=== PATIENT | female | born 1990 | race Asian ===

== ENCOUNTER → 2019-08-17 | Outpatient (CLI) | payer OTHER | LOC: M LABSMTC 09:51 → EDUNIT# 10:10 | PROVIDERS: ATTEND Anesthesiology | DX: Z01.818 Encounter for other preprocedural examination (principal); Z11.59 Encounter for screening for other viral diseases ==

== ENCOUNTER 2019-08-20 07:55 | Day surgery (SDC) | payer OTHER ==
[~2019-08-20] VITALS: Ht 144.8 cm; Wt 57.1 kg
[~2019-08-20 07:55] MED LIST: LR 1,000 ML IV ONE
[2019-08-20] MEDS ORDERED: IODINE STRONG SOLN 15 ML BTL As Ordered ONE (08:36)
[2019-08-20] MEDS ORDERED: BUPIVACAINE/EPIN 0.25% 30 ML VIAL As Ordered ONE ×2 (08:41→10:25)
[2019-08-20 08:47] LABS: HCG, SERUM QUALITATIVE NEGATIVE (NEGATIVE)
[2019-08-20] MEDS ORDERED: KETOROLAC 60 MG/2 ML VIAL As Ordered ONE (09:59)
[2019-08-20] MEDS ORDERED: propofoL 200 MG/20 ML VIAL As Ordered ONE (09:59)
[2019-08-20] MEDS ORDERED: ONDANSETRON 4MG/2ML VIAL As Ordered ONE (09:59)
[2019-08-20] MEDS ORDERED: METOCLOPRAMIDE INJ 10MG/2ML VIAL (J2765 PER 1) As Ordered ONE (09:59)
[2019-08-20] MEDS ORDERED: fentaNYL 100 MCG/2 ML INJECTION (J3010) As Ordered ONE (09:59)
[2019-08-20] MEDS ORDERED: MIDAZOLAM INJ 2MG/2ML VIAL (J2250 PER 1MG) As Ordered ONE (09:59)
[2019-08-20] MEDS ORDERED: LIDOCAINE 2% 100MG/5ML SDV (FOR ANES.) As Ordered ONE (09:59)
[2019-08-20] MEDS ORDERED: dexameTHASONE 4 MG/ML 1ML VIAL (J1100 PER 1MG) As Ordered ONE (09:59)
[2019-08-20] MEDS ORDERED: PERCOCET 5MG/325MG TAB As Ordered ONE (11:06)
[2019-08-20] MEDS ORDERED: ONDANSETRON 4MG/2ML VIAL IV PRN (11:15)
[2019-08-20] MEDS ORDERED: LR 1,000 ML IV SCH ×2 (11:15)
[2019-08-20] MEDS ORDERED: METOCLOPRAMIDE INJ 10MG/2ML VIAL (J2765 PER 1) IV PRN (11:15)
[2019-08-20] MEDS ORDERED: fentaNYL 100 MCG/2 ML INJECTION (J3010) IV PRN (11:15)
[2019-08-20] MEDS ORDERED: PERCOCET 5MG/325MG TAB PO PRN (11:15)
[2019-08-20 11:42] VITALS: BP 98/61
--- NOTE | 2019-08-20 17:09 | POST-OPPD ---
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 Risk of bleeding, infection, pain, need for repeat procedure, increased risk of delivery discussed with patient. She expresses understanding and desires to proceed. Patient was brought to OR with IV running. Patient placed under general anesthesia. Placed in lithotomy position. Vaginal and perineum prepped and draped. An insulated speculum placed in the vagina and cervix identified. Transformation zone visualized. Paracervical block performed using Marcain 0.25% with epi (18cc used). Parous appearing cervix. Lugos applied. Decreased uptake noted at 11oclock transformation zone. IUD string visualized and tucked intracervical using cutips. Loop caudery size [id number] used. Power set to 60/60. Left to right pass and tissue collected. Cervix cauderized thoroughly, hemostatic. One IUD string was cut during this process. One string appears intact. ECC performed and cytobrush used to collect specimen. Monsels placed. All instruments removed from vagina. Count correct x 2. KANWAL MORALES DO August 20, 2019 17:09
== END 2019-08-20 12:41 | disposition home or self-care (01) ==
LOC: M SDC 07:55
PROVIDERS: ATTEND Obstetrics & Gynecology
DX: D06.9 Carcinoma in situ of cervix, unspecified (principal); Z97.5 Presence of (intrauterine) contraceptive device; Z03.818 Encounter for observation for suspected exposure to other biological agents ruled out
CPT/HCPCS: 36415; 57522; 84703; 88307; J1100; J1885; J2250; J2405; J2765; J3010

== ENCOUNTER 2019-10-05 07:09 | Day surgery (SDC) | payer OTHER ==
[~2019-10-05] VITALS: Ht 144.8 cm; Wt 55.8 kg
[~2019-10-05 07:09] MED LIST changes: +LIDOCAINE 1% MDV 20ML VIAL SQ PRN; +LIDOCAINE 2% 100MG/5ML SDV (FOR ANES.) As Ordered ONE; +LR 1,000 ML IV SCH; +MIDAZOLAM INJ 2MG/2ML VIAL (J2250 PER 1MG) As Ordered ONE; +ONDANSETRON 4MG/2ML VIAL As Ordered ONE; +PERCOCET 5MG/325MG TAB PO PRN; +PHENYLephrine 500MCG 5ML (100MCG/ML) SYRINGE As Ordered ONE; +PROMETHAZINE INJ 25 MG/ML VIAL (J2550) IV PRN; +dexameTHASONE 4 MG/ML 1ML VIAL (J1100 PER 1MG) As Ordered ONE; +ePHEDrine SULFATE 25 MG/5 ML(5MG/ML) SYRINGE As Ordered ONE; +fentaNYL 100 MCG/2 ML INJECTION (J3010) As Ordered ONE; +propofoL 200 MG/20 ML VIAL As Ordered ONE
[2019-10-05 07:41] LABS: HEMATOCRIT 39.6 % (36.0-47.0); HEMOGLOBIN 12.9 g/dl (12.0-15.5); MEAN CORPUSCULAR HEMOGLOBIN 29.7 pg (27.0-33.0); MEAN CORPUSCULAR HGB CONC 32.6 g/dl (32.0-36.5); PLATELET COUNT, AUTOMATED 184 10^3/uL (150-450); RED BLOOD COUNT 4.35 10^6/uL (4.00-5.40); WHITE BLOOD COUNT 5.2 10^3/uL (4.0-10.0)
[2019-10-05] MEDS ORDERED: KETOROLAC 60MG 2ML VIAL As Ordered ONE ×2 (07:49→09:13)
[2019-10-05] MEDS ORDERED: BUPIVACAINE/EPIN 0.25% 30 ML VIAL As Ordered ONE (08:41)
[2019-10-05] MEDS ORDERED: IODINE STRONG SOLN 15 ML BTL As Ordered ONE (09:18)
[2019-10-05] MEDS ORDERED: LR 1,000 ML IV SCH (10:15)
[2019-10-05] MEDS ORDERED: fentaNYL 100 MCG/2 ML INJECTION (J3010) IV PRN (10:15)
[2019-10-05] MEDS ORDERED: ONDANSETRON 4MG/2ML VIAL IV PRN (10:15)
[2019-10-05] MEDS ORDERED: METOCLOPRAMIDE INJ 10MG/2ML VIAL (J2765 PER 1) IV PRN (10:15)
[2019-10-05 11:37] VITALS: BP 108/70
--- NOTE | 2019-10-05 11:42 | POST-OPPD ---
Postoperative Procedure Note Date Of Procedure: Oct 05, 2019 PREOPERATIVE DIAGNOSIS: HGSIL POSTOPERATIVE DIAGNOSIS: HGSIL FINDINGS: normal appearing ecto cervix. no acetowhite changes to ecto cervix. PROCEDURE: LEEP, ECC SURGEON: Kanwal Morales DO DISTRICT TRAFFIC CHIEF: NONE ANESTHESIA: GENERAL SPECIMENS: LEEP specimen with suture at 12oclock, ECC ESTIMATED BLOOD LOSS: < 5cc REPLACED: 800cc LR DRAINS: none COMPLICATIONS: none POSTOPERATIVE CONDITION: stable Detailed procedure note: Reason for procedure: 28 yo s/p LEEP in August 19 showing ASIM II on ECC with ASIM III on LEEP specimen. Patient desires repeat procedure Material to lab: LEEP specimen suture at 12 oclock, ECC Description of procedure: The risks, benefits, indications and alternatives of the procedure were reviewed with the patient and informed consent was obtained. Risk of bleeding, infection, pain, need for repeat procedure, increased risk of delivery discussed with patient. She expresses understanding and desires to proceed. Patient was brought to OR with IV running. Patient placed under general anesthesia. Placed in lithotomy position. Vaginal and perineum prepped and draped. An insulated speculum placed in the vagina and cervix identified. Transformation zone visualized. Paracervical block performed using Marcain 0.25% with epi (15cc used). Parous appearing cervix. Acetic acid applied. No abnormalities visualized at the ecto cervix. IUD string visualized and tucked intracervical using cutips. Loop caudery size [id number] used. Power set to 60/60. Anterior to posterior pass and tissue collected. Cervix cauderized thoroughly, hemostatic. ECC performed and cytobrush used to collect specimen. IUD string moved to external cervix, intact. Monsels placed. All instruments removed from vagina. Count correct x 2. KANWAL MORALES DO Oct 05, 2019 10:22
== END 2019-10-05 11:40 | disposition home or self-care (01) ==
LOC: M SDC 07:09
PROVIDERS: ATTEND Obstetrics & Gynecology
DX: D06.9 Carcinoma in situ of cervix, unspecified (principal)
CPT/HCPCS: 36415; 57522; 81025; 85027; 88305; 88307; J1100; J1885; J2250; J2370; J2405; J3010